=== PATIENT | female | born 1925 | race Caucasian/White ===

== ENCOUNTER 2016-07-30 14:18 | Emergency (ER) | payer MEDICARE, BC ==
--- NOTE | ~2016-07-30 | CR133 ---
[facility] A Service of [facility] & [facility] RADIOLOGY TEXT RESULTS PATIENT: OLIVIA LEMUS LOCATION: [facility] : [birth year] UNIT #: [id number] AGE: [address]: Jono Dennis MD SEX: F ORDER DR: [id number] [facility] [address] [place], [place] [address] [id number] E MR#: [id number] Acc #: [id number] NAME: OLIVIA LEMUS : 1925 SEX: F STUDY DATE/TIME: 07/30/2016 13:49 UNIT: [facility] ROOM: STUDY DESCRIPTION: CR Forearm 2 View Rt Attending Physician: Jono Dennis M.D. Ordering Physician: Jono Dennis M.D. Primary Care Physician: Alexx Hernandez M.D. MEDICAL IMAGING REPORT This report is preliminary unless electronic signature is present EXAM Right forearm HISTORY Arm pain after falling at home today TECHNIQUE 2 views of the forearm were obtained FINDINGS 2 views of the forearm demonstrate a distal radial and ulnar fracture that will be described in detail on the wrist series. The proximal forearm is normal. The elbow joint is unremarkable. IMPRESSION Distal radial fracture. Probable fracture of the ulnar styloid. The proximal aspect of the forearm is normal. Dictated by... Stevie Lee M.D. THIS IS AN ELECTRONICALLY VERIFIED REPORT Stevie Lee M.D. at 07/30/2016 4:42 PM RLF/devaughn TD: 07/30/2016 15:55 JOB #: [id number] MEDICAL IMAGING REPORT COPY
--- NOTE | ~2016-07-30 | CT71 ---
[facility] A Service of [facility] RADIOLOGY TEXT RESULTS PATIENT: OLIVIA LEMUS LOCATION: [facility] : [birth year] UNIT #: [id number] AGE: [address]: Jono Dennis MD SEX: F ORDER DR: [id number] [facility] [address] [place], [place] [address] [id number] E MR#: [id number] Acc #: [id number] NAME: OLIVIA LEMUS : 1925 SEX: F STUDY DATE/TIME: 07/30/2016 14:46 UNIT: [facility] ROOM: STUDY DESCRIPTION: CT Head Wo Contrast Attending Physician: Jono Dennis M.D. Ordering Physician: Jono Dennis M.D. Primary Care Physician: Alexx Hernandez M.D. MEDICAL IMAGING REPORT This report is preliminary unless electronic signature is present EXAM CT head, 07/30/2016. HISTORY Fell at home. Hit head, on blood thinner, today. TECHNIQUE CT head performed skull base through vertex without intravenous contrast. This CT exam was performed with one or more of the following radiation dose reduction techniques: automatic exposure control, adjustment of mA and/or kV according to patient size, and iterative reconstruction. COMPARISON STUDIES No prior CTs of head for comparison. FINDINGS The cerebellum is notable only for mild atrophic change. The brainstem is unremarkable. The cerebral hemispheres show overall preservation of bueno matter-white matter differentiation. Prominent CSF space anterior left middle cranial fossa. No change in volume or configuration compared to MRI dated 01/17/2009. Appearance most consistent with arachnoid cyst. There is no intracranial hemorrhage. No evidence of acute cortical ischemia. Periventricular and deep white matter tract probable sequelae of chronic microvascular ischemia. Midline structures are nondisplaced. No acute basal ganglia abnormality. Ventricles, cisterns, and sulci show mild generalized enlargement consistent with mild generalized atrophy. No intra or extraaxial mass effect or abnormal intracranial fluid collection. The intraorbital soft tissues are unremarkable. The visualized paranasal sinuses and mastoid air cells show mucosal thickening in inferior posterior left mastoid air cells. No significant change from MRI in 2008. Prior left temporal craniotomy. Given these changes, it is possible that the prominent CSF space in the anterior left temporal region is STS. [facility] A Service of [facility] RADIOLOGY TEXT RESULTS PATIENT: OLIVIA LEMUS LOCATION: [facility] : [birth year] UNIT #: [id number] AGE: [address]: Jono Dennis MD SEX: F ORDER DR: postoperative in etiology. IMPRESSION 1. No clearly acute abnormality is seen in the brain. If the patient has ongoing neurologic symptoms, consider follow up imaging. 2. There is mild generalized atrophy. 3. Periventricular and deep white matter tract probable sequelae of chronic microvascular ischemia. 4. Prominent CSF space anterior aspect left middle cranial fossa. No change in appearance from MRI dated 2008. Patient is status post a prior left temporal craniotomy. Changes in the middle cranial fossa could be postoperative in nature or could be a reflection of chronic arachnoid cyst. 5. See remainder of findings in the body of the report above. Dictated by... Zi Zafar M.D. THIS IS AN ELECTRONICALLY VERIFIED REPORT Zi Zafar M.D. at 07/31/2016 12:31 PM REA/sally TD: 07/30/2016 16:37 JOB #: [id number] MEDICAL IMAGING REPORT COPY
--- NOTE | ~2016-07-30 | CR142 ---
[facility] A Service of [facility] RADIOLOGY TEXT RESULTS PATIENT: OLIVIA LEMUS LOCATION: [facility] : [birth year] UNIT #: [id number] AGE: [address]: Jono Dennis MD SEX: F ORDER DR: [id number] [facility] [address] [place], [place] [address] [id number] E MR#: [id number] Acc #: [id number] NAME: OLIVIA LEMUS : 1925 SEX: F STUDY DATE/TIME: 07/30/2016 13:45 UNIT: [facility] ROOM: STUDY DESCRIPTION: CR Hand Min 3 Views Rt Attending Physician: Jono Dennis M.D. Ordering Physician: Jono Dennis M.D. Primary Care Physician: Alexx Hernandez M.D. MEDICAL IMAGING REPORT This report is preliminary unless electronic signature is present EXAM Right hand, 3 views. DATE OF EXAM 07/30/2016 HISTORY Fell at home today. Wrist and pain shooting up to elbow. FINDINGS 3 views of the right wrist demonstrates diffuse osteopenia. There is an impacted transverse fracture of the distal radius with dorsal impaction and extension to the distal radioulnar joint but no definite depression or involvement of the radial carpal joint. 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 Advanced degenerative changes noted at the STT articulations and also at the first CMC joint. Mild associated soft tissue swelling. Multifocal arthritic changes are also seen in the MCP joints, PIP joints, and DIP joints, most pronounced at the IP joint of the thumb and second and third DIP joints characteristic of osteoarthritis. Dictated by... Mckenna Morgan M.D. THIS IS AN ELECTRONICALLY VERIFIED REPORT cMkenna Morgan M.D. at 07/30/2016 4:54 PM Grace TD: 07/30/2016 16:11 JOB #: [id number] MEDICAL IMAGING REPORT [facility] A Service of [facility] RADIOLOGY TEXT RESULTS PATIENT: OLIVIA LEMUS [id number] [birth year] UNIT #: [id number] AGE: [address]: Jono Dennis MD SEX: F ORDER DR: COPY
--- NOTE | ~2016-07-30 | CR282 ---
[facility] A Service of [facility] RADIOLOGY TEXT RESULTS PATIENT: OLIVIA LEMUS LOCATION: [facility] : [birth year] UNIT #: [id number] AGE: [address]: Jono Dennis MD SEX: F ORDER DR: [id number] [facility] [address] [place], [place] [address] [id number] E MR#: [id number] Acc #: [id number] NAME: OLIVIA LEMUS : 1925 SEX: F STUDY DATE/TIME: 07/30/2016 13:47 UNIT: [facility] ROOM: STUDY DESCRIPTION: CR Wrist Min 3 View Rt Attending Physician: Jono Dennis M.D. Ordering Physician: Jono Dennis M.D. Primary Care Physician: Alexx Hernandez M.D. MEDICAL IMAGING REPORT This report is preliminary unless electronic signature is present EXAM Right wrist 3 views HISTORY Wrist pain, swelling and bruising. Fell at home today. FINDINGS 3 views of the right wrist demonstrates a transverse fracture of the distal radius with dorsal impaction and mild dorsal angulation. Extension of the fracture to the distal radioulnar joint but no involvement of the radiocarpal joint and no step-off at the radial articular surface. Chondrocalcinosis noted in the TFCC complex. Advanced arthritic change is seen at the STT articulation most likely on the basis of degenerative arthropathy. No definitive ulnar styloid fracture. Dictated by... Mckenna Morgan M.D. THIS IS AN ELECTRONICALLY VERIFIED REPORT Mckenna Morgan M.D. at 07/30/2016 4:54 PM Jude TD: 07/30/2016 16:04 JOB #: [id number] MEDICAL IMAGING REPORT COPY
[2016-07-30 13:53] LABS: BASOPHIL# 0.1 X10e3 (0-0.3); BASOPHIL% 0.8 % (0-2.5); EOSINOPHIL# 0.1 X10e3 (0-0.7); HEMATOCRIT 45.8 % (35.0-45.0); HEMOGLOBIN 15.1 gm/dL (12.0-16.0); LYMPHOCYTE# 1.9 X10e3 (1.0-3.5); LYMPHOCYTE% 15.9 % (17.0-45.0); MEAN CELL VOLUME 88.5 FL (83-96); MEAN CORPUSCULAR HEMOGLOBIN 29.1 PG (28-34); MEAN CORPUSCULAR HGB CONC 32.9 g/dL (30-36); MONOCYTE# 0.6 X10e3 (0-1.0); MONOCYTE% 4.9 % (3.0-12.0); NEUTROPHIL# 9.4 X10e3 (1.5-7.1); NEUTROPHIL% 77.4 % (40-75); PLATELET COUNT 263 X10e3 (140-420); RED BLOOD COUNT 5.18 X10e (3.90-5.30); RED CELL DISTRIBUTION WIDTH 14.7 % (11.0-15.5); WHITE BLOOD COUNT 12.1 X10e3 (4.0-10.5)
[2016-07-30 13:55] LABS: DIFF IND YES
[2016-07-30 14:01] LABS: INR 1.1; PARTIAL THROMBOPLASTIN TIME 26.8 SECONDS (23.5-31.3); PROTHROMBIN TIME (PATIENT) 11.6 SECONDS (9.6-11.5)
[2016-07-30 14:05] LABS: BUN/CREATININE RATIO 19.09; CALCIUM SERUM 9.3 mg/dL (8.4-10.2); CREATININE SERUM 1.1 mg/dL (0.6-1.4); GLOM FILT RATE Estimated 49.8 mL/min (>60); POTASSIUM 4.2 mmol/L (3.5-5.1)
[2016-07-30 14:10] LABS: PLATELET ESTIMATE NORMAL (NORMAL); RBC NORMAL YES
[~2016-07-30 14:18] MED LIST: ASPIRIN EC81 M1 PO; CHOLESTEROL MED PO; DISCONTINUED MED
== END 2016-07-30 15:45 | disposition home or self-care (01) ==
LOC: CED 14:18
PROVIDERS: Emergency Medicine
DX: S52.501A Unspecified fracture of the lower end of right radius, initial encounter for closed fracture (principal); S09.90XA Unspecified injury of head, initial encounter; E78.5 Hyperlipidemia, unspecified; W01.0XXA Fall on same level from slipping, tripping and stumbling without subsequent striking against object, initial encounter; Y92.009 Unspecified place in unspecified non-institutional (private) residence as the place of occurrence of the external cause
CPT/HCPCS: 29125; 70450; 73090; 73110; 73130; 80048; 85025; 85610; 85730; 99284